=== PATIENT | male | born 1950 | race Two or more races ===

== ENCOUNTER 2017-01-25 23:10 | Emergency (ER) | payer OTHER ==
[~2017-01-25] VITALS: Ht 185.4 cm; Wt 82.5 kg
[2017-01-25] MEDS ORDERED: ASPIRIN 81 MG TABLET CHEW ONE (23:47)
[2017-01-26] MEDS ORDERED: ASPIRIN 81 MG TABLET CHEW PO ONE
[2017-01-26] MEDS ORDERED: SODIUM CHLORIDE FLUSH 10ML SYR IVF ONE
[2017-01-26 00:01] LABS: HEMATOCRIT 58.5 % (39.2-51.8); HEMOGLOBIN 19.5 g/dL (13.7-18.0); WHITE BLOOD COUNT 9.5 x10^3/uL (3.4-10)
[2017-01-26] MEDS ORDERED: LISI2.5T PO (00:05)
[2017-01-26] MEDS ORDERED: HYDR12.53 PO (00:05)
[2017-01-26] MEDS ORDERED: AMLO10TA2 PO (00:05)
[2017-01-26 00:14] LABS: ASPARTATE AMINO TRANSFERASE 21 U/L (15-37); BLOOD UREA NITROGEN 23 mg/dL (7-18)
[2017-01-26 00:19] LABS: IS PT STATUS REG ER OR PRE ER? YES
[2017-01-26] MEDS ORDERED: OMNIPAQUE 350 MG/ML, 100ML BOTTLE ONE (01:20)
[2017-01-26 02:13] LABS: IS PT STATUS REG ER OR PRE ER? YES
[2017-01-26 02:32] VITALS: BP 159/91
== END 2017-01-26 03:10 | disposition home or self-care (01) ==
LOC: ED 23:59
DX: R07.89 Other chest pain (principal); I10 Essential (primary) hypertension; I72.3 Aneurysm of iliac artery; H57.02 Anisocoria
CPT/HCPCS: 36415; 70450; 71010; 71275; 80053; 83880; 84484; 85025; 93005; 99285; Q9967

== ENCOUNTER 2018-06-18 12:16 | Emergency (ER) | payer MEDICARE, OTHER ==
[~2018-06-18] VITALS: Ht 185.4 cm; Wt 81.0 kg
[~2018-06-18 12:16] MED LIST: AMLO10TA8 PO; HYDR12.517 PO; LISI2.5T PO
[2018-06-18 12:21] VITALS: BP 144/91
--- NOTE | 2018-06-18 13:24 | NUR ---
Patient/Caregiver given discharge instructions and they have confirmed that they understand the instructions. Patient ambulatory with steady gait.
== END 2018-06-18 13:43 | disposition home or self-care (01) ==
LOC: ED 13:37
DX: H11.31 Conjunctival hemorrhage, right eye (principal)
CPT/HCPCS: 99282

== ENCOUNTER 2019-10-05 12:02 | Emergency (ER) | payer MEDICARE ==
[~2019-10-05] VITALS: Ht 185.4 cm; Wt 85.0 kg
--- NOTE | 2019-10-05 12:26 | NUR ---
SEE TRIAGE. PT STATES HE TOOK SELF OFF BP MED FOR ONE WEEK AFTER MONITORING AT HOME WITH "LOW BLOOD PRESSURE" READINGS. NO PROBLEMS UNTIL YESTERDAY, PT SAYS HE'S BEEN WORKING OUTSIDE AND "FELT DEHYDRATED". PT DRANK MORE WATER LAST NIGHT AND REPORTS OF INCREASED FREQUENCY OF URINATION AND BMS DURING NIGHT. PT DENIES PAIN WITH URINATION, DIARRHEA, FEVER, ABD PAIN. PT PROVIDED GOWN AND URINAL. CALL LIGHT WITHIN REACH, FAMILY AT BS.
[2019-10-05 13:22] LABS: BASOPHILS # (AUTO) 0.01 x10^3/uL (0-0.1); BASOPHILS % (AUTO) 0 % (0-1); EOSINOPHILS # (AUTO) 0.01 x10^3/uL (0-0.4); EOSINOPHILS % (AUTO) 0 % (1-7); LYMPHOCYTES # (AUTO) 0.96 x10^3/uL (1-3.4); LYMPHOCYTES % (AUTO) 9 % (22-44); MD NO; MEAN CORPUSCULAR HEMOGLOBIN 25.1 pg (27.5-34.5); MEAN CORPUSCULAR HGB CONC 32.1 g/dL (33.2-36.2); MEAN CORPUSCULAR VOLUME 78.3 fL (81-97); MEAN PLATELET VOLUME 9.5 fL (7.4-10.4); MONOCYTES # (AUTO) 0.47 x10^3/uL (0.2-0.8); MONOCYTES % (AUTO) 4 % (2-9); NEUTROPHILS # (AUTO) 9.33 x10^3/uL (1.8-6.8); NEUTROPHILS % (AUTO) 87 % (42-75); PLATELET COUNT 210 x10^3/uL (130-400); RED BLOOD COUNT 6.81 x10^6/uL (4.38-5.82); RED CELL DISTRIBUTION WIDTH 20.2 % (9.4-14.8)
--- NOTE | 2019-10-05 13:26 | NUR ---
URINE COLLECTED/WALKED TO LAB.
[2019-10-05 13:33] LABS: ALANINE AMINOTRANSFERASE 25 U/L (12-78); ALBUMIN 3.9 g/dL (3.4-5.0); ANION GAP 4 mmol/L (5-15); CALCIUM 8.8 mg/dL (8.5-10.1); CHLORIDE 109 mmol/L (98-107); CREATININE 1.44 mg/dL (0.7-1.3)
[2019-10-05 13:36] LABS: ALKALINE PHOSPHATASE 49 U/L (45-117); BILIRUBIN,TOTAL 0.8 mg/dL (0.2-1.0); TOTAL PROTEIN 7.8 g/dL (6.4-8.2)
[2019-10-05 13:43] LABS: MICROSCOPIC NOT IND
--- NOTE | 2019-10-05 13:57 | NUR ---
ALL RESULTS BACK, PT FOR RECHECK.
[2019-10-05 14:28] VITALS: BP 169/100
[2019-10-05] MEDS ORDERED: TAMSULOSIN 0.4 MG CAP.ER.24H ONE (15:20)
[2019-10-05] MEDS ORDERED: TAMSULOSIN 0.4 MG CAP.ER.24H PO ONE (15:30)
== END 2019-10-05 15:41 | disposition home or self-care (01) ==
LOC: ED 12:58
DX: I12.9 Hypertensive chronic kidney disease with stage 1 through stage 4 chronic kidney disease, or unspecified chronic kidney disease (principal); N18.2 Chronic kidney disease, stage 2 (mild)
CPT/HCPCS: 36415; 80053; 81003; 85025; 99283

== ENCOUNTER 2019-11-22 11:22 | Emergency (ER) | payer MEDICARE ==
[~2019-11-22] VITALS: Ht 185.4 cm; Wt 83.0 kg
--- NOTE | 2019-11-22 11:38 | NUR ---
PT CAME IN CO OF HIGH BP. "I WAS 199/110 AT HOME". PT TAKES 20MG LISINOPRIL DAILY. PT DENIES CHEST PAIN OR BLURRED VISION. PT RESTING IN [facility]. AWAITING MD. CONNECTED TO MONITORING EQUIPMENT.
[2019-11-22 11:41] VITALS: BP 172/106
== END 2019-11-22 12:51 | disposition home or self-care (01) ==
LOC: ED 12:49
DX: I10 Essential (primary) hypertension (principal)
CPT/HCPCS: 99281